=== PATIENT | male | born 1970 | race Caucasian/White ===

== ENCOUNTER 2023-09-15 15:45 | Inpatient (IN) | payer OTHER, SELFPAY ==
[2023-09-15] VITALS (11 sets, daily range): BP systolic 108–140; BP diastolic 73–88; BMI 28.0
--- NOTE | 2023-09-15 11:32 | ED.GENMED ---
History of Present Illness
General
Chief Complaint: Breathing Problem
Source: patient
Exam Limitations: none
Time Seen by Provider: 09/15/23 11:25
History of Present Illness
History of Present Illness:
53 year old otherwise healthy male presents with worsening PALACIOS. He feels minimal exertion reproduces shortness of breath. No chest pain or cough. Denies dark or tarry stools but notes a hemorrhoid that has been bleeding when he moves his bowels
only. NO recent travel or surgery. he does not take any medications daily. No fever.
Past History
Past History
ED Past Medical History: None
ED Past Surgical History: None
Social History
Tobacco: Non-smoker
Alcohol: None
Drug: None
Employment: Employed
Phy Exam
Physical Exam
Physical Exam:
General: Pale appearing male, no respiratory distress
HEENT: NC/AT pallor noted
Heart: Tachycardic but regular
Lungs CTA bilaterally
ABd: soft, nontender
Ext: no cyanosis
Skin: Pale, no rash
Scores
Heart Failure Risk
Heart Failure Risk Score: Not Applicable
Course
Orders/Labs/Results
Orders:
Orders
09/15/23 11:42
Type+Screen Urgent
Complete Blood Count/With Diff Urgent
Comprehensive Metabolic Panel Urgent
09/15/23 12:31
Blood Bank Products [* Blood Bank Products] Urgent
Blood Bank Products: *Packed RBC Leuko(PRBC's)
Quantity: 2
Transfuse Today: Yes
Reason: Anemia
Abnormal Lab Results
09/15/23
11:42
RBC 2.85 L 10^6/uL
(4.70-6.10)
Hgb 4.4 L* g/dL
(13.0-18.0)
Hct 17.1 L* %
(39.0-52.0)
MCV 60.0 L fL
(80.0-94.0)
MCH 15.4 L pg
(27.0-31.0)
MCHC 25.7 L g/dL
(33.0-37.0)
RDW 20.4 H %
(11.5-14.5)
Absolute Lymphs (auto) 0.5 L 10^3/uL
(1.2-3.4)
Neutrophils % 81.1 H %
(42.2-75.2)
Lymphocytes % 10.4 L %
(20.5-51.1)
Chloride 108 H mmol/L
(98-107)
Carbon Dioxide 20 L mmol/L
(22-30)
Glucose 121 H mg/dl
(70-99)
Total Bilirubin 2.0 H mg/dl
(0.2-1.3)
09/15/23 11:42
09/15/23 11:42
Vital Signs
Initial and Last Documented VS:
Initial Vital Signs
Temp Pulse Resp BP Pulse Ox
98.3 F 116 16 132/88 99
09/15/23 10:50 09/15/23 10:50 09/15/23 10:50 09/15/23 10:50 09/15/23 10:50
Last Documented Vital Signs
Temp Pulse Resp BP Pulse Ox
98.3 F 110 20 136/74 99
09/15/23 10:50 09/15/23 11:49 09/15/23 11:49 09/15/23 11:49 09/15/23 11:49
MDM/Problems Addressed
Differential Diagnosis Includes:
PALACIOS. Resting tachycardia. Looks pale. Consider anemia. Denies dark stools. Takes no medications
No risk for PE. lUngs are clear, do not suspect pneumonia
Chronic conditions affecting care:
None
Acute Exacerbation and/or Progression of Chronic Illness:
n/a
*Critical Care Note
Total Time (30-74mins, 75-104mins- exclusive of procedures): Not Applicable
Update Note
Update Note:
Hgb 4.4. Patient has symptomatic anemia. Rectal exam shows external hemorrhoid, not actively bleeding. Stool is brown and heme negative.
Patient does not use NSAIDs regularly, he does admit to drinking 10 beers every weekend.
Blood consent signed. 2 units of PRBC ordered. Will admit for symptomatic anemia
ED Attending Note
-
Portions of this chart may have been created with voice recognition software.� Occasional wrong word or��sound alike� substitutions may have occurred due to the inherent limitations of voice recognition software.
Discharge Plan
Departure
Patient Disposition: Admit
Date of Disposition: 09/15/23
Time of Disposition: 12:36
Admit to: Telemetry
Presentation/result/management discussed w/ accepting MD/DO: Hospitalist
Discharge Problem:
Symptomatic anemia
Prescriptions:
No Action
No Current Medications
0
Interventions
Interventions:
*Risk Screen - Suicide Last Done: 09/15/23 10:50
*General Assessment Last Done: 09/15/23 10:50
*Neglect/Abuse Screening Last Done: 09/15/23 10:50
ED- Fall Risk Assessment Last Done: 09/15/23 11:17
ED- Cardiac Assessment Last Done: 09/15/23 11:17
ED- Pulmonary Assessment Last Done: 09/15/23 11:17
Discharge Date and Time
Print Language: PASHTO
[2023-09-15 12:08] LABS: ALT (SGPT) 15 U/L (0-50); AST (SGOT) 19 U/L (17-59); Albumin 4.7 g/dl (3.5-5.0); Alkaline Phosphatase 50 U/L (38-126); Blood Urea Nitrogen 11 mg/dl (9-20); Calcium 9.4 mg/dl (8.4-10.2); Carbon Dioxide 20 mmol/L (22-30); Chloride 108 mmol/L (98-107); Glucose 121 mg/dl (70-99); Potassium 4.3 mmol/L (3.5-5.1); Sodium 138 mmol/L (135-145); Total Protein 6.8 g/dl (6.3-8.2); eGFR > 60.00
[2023-09-15 12:14] LABS: Hematocrit 17.1 % (39.0-52.0); Hemoglobin 4.4 g/dL (13.0-18.0); Mean Corp Hgb Conc. 25.7 g/dL (33.0-37.0); Mean Corpuscular Hgb 15.4 pg (27.0-31.0); Mean Platelet Volume 9.1 fL (7.4-10.4); Platelet Count 387 10^3/uL (130-400); Red Blood Cell Count 2.85 10^6/uL (4.70-6.10); Red Cell Dist. Width 20.4 % (11.5-14.5); White Blood Cell Count 4.8 10^3/uL (4.8-10.8)
[2023-09-15 12:16] LABS: % Basophils 0.4 % (0-2); % Eosinophils 1.7 % (0-6); % Immature Granulocytes 0.4 % (0-0.5); % Lymphocytes 10.4 % (20.5-51.1); % Neutrophils 81.1 % (42.2-75.2); Absolute Eosinophils 0.1 10^3/uL (0-0.7); Absolute Lymphocytes 0.5 10^3/uL (1.2-3.4); Absolute Monocytes 0.3 10^3/uL (0.1-0.6); Absolute Neutrophils 3.9 10^3/uL (1.4-6.5); Nucleated Red Blood Cells % 0 % (-)
[2023-09-15 15:01] LABS: Hypochromasia 2+; Normal RBC Morphology No
--- NOTE | 2023-09-15 16:05 | CON.GI ---
Addendum entered and electronically signed by Parvez Francisco MD 09/15/23 17:29:
I saw and evaluated the patient. I reviewed the resident�s note and agree with findings and plan as documented in the resident�s note.
Pt is a 53yo male presents with SOB over last 2 weeks. Hgb 4.4, MCV 60. He has had hemorrhoidal bleeding over the last 6 months several times per week. He sees BRB in bowl and on TP that is a fair amount. Occasionally he feels prolapse of the
hemorrhoid. Denies abd pain, UGI symptoms, change in BMs. He is regular and has 2 BMs per day. No prior EGD/colonoscopy. No prior CBC as pt does not see a primary care physician. Denies wt loss. No FH of GI cancers. Ferritin 2.7.
REC:
Transfuse PRBC to a safer range, then plan prep tomorrow for EGD/colonoscopy on Monday to SALINAS
Could be chronic bleeding from hemorrhoids but seems excessive drop in Hgb
Rule out CRC, evaluate for celiac, H pylori
Original Note:
Consultation
-
Date/Time Consultation Performed: 09/15/23
Reason for Consultation: symptomatic anemia, hemorrhoids
Medical History
Chief Complaint / HPI
Chief Complaint: shortness of breath on exertion
History of Present Illness:
53 year old male with history of hemorrhoids, cholelithiasis who presented to urgent care for shortness of breath on exertion, and was sent to the ED for evaluation. For the past 2 weeks, he has felt short of breath and had trouble taking deep
breaths after walking about 0.1 miles outside. 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 He has no shortness of breath at rest or while walking in his apartment. He had a similar episode in 06/2022, which
resolved after urgent care prescribed albuterol inhaler and PO steroids. In the ED, his hgb was 4.4 and GI was consulted for bleeding hemorrhoids. He does not follow with primary care, and has not had baseline blood work in his adulthood.
For the past 6 months, he reports intermittent painless rectal bleeding after bowel movements. Based on his 'googling,' he believes this to be a hemorrhoid that occasionally prolapses and is easily reduced. A few days per week, he notices a fairly
significant amount of blood after bowel movements; the blood drips into the toilet bowl and soaks the toilet paper when he wipes. It most recently bled this morning. He has tried vaseline, hemorrhoid cream, and increasing his fiber, which he says
sometimes help. He has daily bowel movements about twice per day, which are brown, formed, and easy to pass without straining. He denies black or red stools, diarrhea, constipation. He denies fevers, chills, chest pain, palpitations, nausea,
vomiting, pain/difficulty swallowing, abdominal pain/cramping. He reports occasional acid reflux, a few times per week. He takes a multivitamin daily, and no other daily medication. He uses ibuprofen or aspirin as needed, about once per month. He
has about 10 beers per week.
Past Medical History
Past Medical History: Asthma (childhood, resolved), GERD and Other (cholelithiasis)
Past Surgical History: Orthopedic (L thumb >30 years ago)
Social History
Tobacco: Non-Smoker
Alcohol: Other (~10 beers per week)
Drug: None
Employment: Employed ([employer])
Family History
Family History: Reviewed & Not Pertinent
Allergies / Home Medications
Allergy/AdvReac Type Severity Reaction Status Date / Time
No Known Allergies Allergy Verified 09/15/23 10:49
�Medication �Instructions �Recorded
therapeutic multivitamin 1 tab PO DAILY 09/15/23
Review of Systems
-
All other systems: A 12 pt ROS was Negative except as stated above in HPI
Vital Signs
Temp Pulse Resp BP Pulse Ox
97.7 F 97 20 125/84 99
09/15/23 15:50 09/15/23 15:50 09/15/23 15:50 09/15/23 15:50 09/15/23 15:50
Physical Exam
Exam
General: Sitting comfortably in bed, no acute distress.
HEENT: Normocephalic, atraumatic. Anicteric. Conjunctival pallor.
Heart: Regular rate and rhythm.
Lungs: Nonlabored breathing. Clear and equal to auscultation bilaterally.
GI: Normal bowel sounds present. Abdomen obese, soft, nontender, nondistended. No rebound, rigidity, guarding.
Results
WBC 4.8 10^3/uL (4.8-10.8) 09/15/23 11:42
Hgb 4.4 g/dL (13.0-18.0) L* 09/15/23 11:42
Hct 17.1 % (39.0-52.0) L* 09/15/23 11:42
MCV 60.0 fL (80.0-94.0) L 09/15/23 11:42
Plt Count 387 10^3/uL (130-400) 09/15/23 11:42
Absolute Neuts (auto) 3.9 10^3/uL (1.4-6.5) 09/15/23 11:42
Sodium 138 mmol/L (135-145) 09/15/23 11:42
Potassium 4.3 mmol/L (3.5-5.1) 09/15/23 11:42
Chloride 108 mmol/L (98-107) H 09/15/23 11:42
Carbon Dioxide 20 mmol/L (22-30) L 09/15/23 11:42
BUN 11 mg/dl (9-20) 09/15/23 11:42
Creatinine 0.9 mg/dL (0.7-1.3) 09/15/23 11:42
Calcium 9.4 mg/dl (8.4-10.2) 09/15/23 11:42
Total Bilirubin 2.0 mg/dl (0.2-1.3) H 09/15/23 11:42
AST 19 U/L (17-59) 09/15/23 11:42
ALT 15 U/L (0-50) 09/15/23 11:42
Alkaline Phosphatase 50 U/L (38-126) 09/15/23 11:42
Diagnostic Image Results:
Chest xray 06/2022:
IMPRESSION:
1. Mild cardiomegaly without radiographic evidence for acute pulmonary edema.
2. Mild elevation of the anterior right hemidiaphragm.
3. Cholelithiasis.
Prior GI Procedures:
EGD: none
Colonoscopy: none
Assessment / Plan
-
53 year old male with past medical history of hemorrhoids, who presents to ED for shortness of breath and found to have symptomatic anemia with hgb 4.4. He has multiple episodes per week of rectal bleeding after bowel movements, and GI consulted for
further evaluation.
Impression:
Painless rectal bleeding
- May be secondary to hemorrhoids; differential also includes GI bleeding from ulcers, polyps, or mass.
Hemorrhoids
Symptomatic anemia, uncertain etiology
- Hgb 4.4 in ED --> s/p 1u pRBC transfusion
Recommendations:
- Colonoscopy, EGD to evaluate for a source of GI bleeding- plan for Saturday 09/16. Will need colonoscopy prep.
- Plan to take biopsies for H pylori and celiac, which can contribute to anemia.
- Iron studies, vitamin b12, folate, tsh labs pending.
- Can consider trial of anusol suppositories for hemorrhoids.
- Continue clear liquid diet.
-
-
Thank you for consultation and allowing me to participate in the patient's care. Please call the conveyor feeder GI physician during the after hours with any questions or concerns.
[2023-09-15 16:25] LABS: Direct Bilirubin 0.3 mg/dl (0.0-0.4)
[2023-09-15 16:34] LABS: Total Iron Binding Capacity 556 ug/dl (261-462)
[2023-09-15 17:12] LABS: Ferritin 2.7 ng/ml (17.9-464.0)
--- NOTE | 2023-09-15 17:22 | PTCARENOTE ---
Yolanda singletary texted Dr. Moore and Dr. Denton that patient drinks 10 beers every Monday or Monday. Patient meets criteria for MSAS.
--- NOTE | 2023-09-15 17:39 | HPS.HSE ---
Addendum entered and electronically signed by Jemima Prater MD 09/15/23 18:24:
I personally performed a history and physical exam of the patient and discussed management with the resident. I reviewed the resident's note and agree with the documented findings and plan of care HPI/CC.
GENERAL: well developed, well nourished, male in no apparent distress
HEENT: NC/AT--conjunctiva pale
HEART: regular rate and rhythm, +S1, +S2, tachycardic
LUNGS : clear to auscultation bilaterally
ABDOM: soft, nontender, nondistended, + bowel sounds
EXT: no cyanosis, clubbing, or edema
NEUROLOGIC: grossly intact
SOB due to symptomatic anemia--likely iron deficiency from chronic blood loss vs poor iron intake-- Hgb:4.4, MCV=60--Transfusion of 2 units of pRBC--Iron studies consistent with SALINAS-- TSH WNL and --Continue to monitor Hgb--Watch for transfusion
reactions--apprec GI consult--will need Consider colonoscopy/endoscopy--pt with hx of hemorrhoids and daily bleeding?--unclear cause
Elevated Bili: Total bili:2, cholelithiasis seen on CXR--Might consider abd ultrasound vs Gilbert's disease
ETOH use--weekends mostly--no signs of withdrawal--will add MSAS
low normal vitamin R44--iuza start supplementation
DVT prophylaxis: SCD
CODE STATUS: Full
Original Note:
Family Physician
-
Family Physician: * NONE
Chief Complaint
-
SOB
History of Present Illness
Patient is a 53 year old otherwise healthy male who presented to the ED for evaluation of SOB. Patient mentions the SOB started a year and a half ago, which he was diagnosed with bronchitis and received nebs; the nebs did initially help him with the
SOB but his dyspnea significantly worsened about 2 weeks ago. Today, he was referred to ED by urgent care due to notable SOB and extreme paleness. He mentions the SOB gets worse with exertion. He does not report any chest pain or dizziness but has
noticed recent palpitations. Does not mention any recent weight loss, hematuria, heartburn, and does not give a history of recent trauma/surgery. He only takes NSAIDs occasionally (twice a month) for headaches.
Patient gives a 6-month history of rectal hemorrhoids that bleed almost daily (about 15cc daily) but has pursued any treatment for his condition. He has never had a colonoscopy/endoscopy.
Nationality is [place].
Medical History
Past Medical History
Past Medical History: Reports Asthma (Patient gives a remote history of asthma in his childhood but has been symptom-free since )
Additional Past Medical History:
Rectal Hemorrhoids
Past Surgical History: Reports None
Social History
Tobacco: Non-smoker
Alcohol: Occasional (Drinks 10 beers in the weekend)
Drug: None
Employment: Employed
Family History
Family History: Cancer (Dad had prostate cancer)
Allergies / Home Medications
Allergies reflects when Allergies were last updated in [facility] [employer].
Home Medications with original date entered in [facility] [employer]
Allergy/Medication List:
Allergies
Allergy/AdvReac Type Severity Reaction Status Date / Time
No Known Allergies Allergy Verified 09/15/23 10:49
Home Medications
therapeutic multivitamin 1 tab PO DAILY 09/15/23
Review of Systems
-
History Source: Patient
A 12 point ROS was completed and negative except as noted: Yes
Respiratory: Reports Trouble Breathing
Cardiac: Reports Palpitations
Abdomen/GI: Reports Other (Rectal Hemorrhoids)
: Reports No Symptoms
Musculoskeletal: Reports No Symptoms
Skin: Reports Other (pale)
Neurological: Reports No Symptoms
Endocrine: Reports No Symptoms
Hematologic/Lymphatic: Reports No Symptoms
Psych: Reports No Symptoms
Physical Exam
Vital Signs
Vital Signs
Temp Pulse Resp BP Pulse Ox
98.3 F 108 14 140/78 100
09/15/23 16:44 09/15/23 16:44 09/15/23 16:44 09/15/23 16:44 09/15/23 16:44
Physical Exam
General: Well Developed, Well Nourished and Comfortable
HEENT: NormoCephalic and Other (pale conjunctivae)
Respiratory: Clear
Cardiac: S1/S2, Regular Rhythm and Tachycardia
GI: Soft, Non Tender, Non Distended and Normal Bowel Sounds
Genito-urinary: No costovertebral tender
Musculoskeletal: No Clubbing, No Cyanosis and No Edema
Neuro: Awake, Alert, Oriented and AO x 3
Psych: Calm
Laboratory Results
-
09/15/23 11:42
09/15/23 11:42
Laboratory Results
Total Bilirubin 2.0 mg/dl (0.2-1.3) H 09/15/23 11:42
AST 19 U/L (17-59) 09/15/23 11:42
ALT 15 U/L (0-50) 09/15/23 11:42
Alkaline Phosphatase 50 U/L (38-126) 09/15/23 11:42
Data Reviewed
-
Critical Care Time (in minutes): 50
Impression/Plan
-
IMPRESSION/ PLAN:
#1 SOB due to symptomatic anemia: Hgb:4.4, MCV=60--Transfusion of 2 units of pRBC--Iron studies--Check TSH and reflux T4--Continue to monitor Hgb--Watch for transfusion reactions-- GI consult for possible GI source of anemia--Consider
colonoscopy/endoscopy
#2 Elevated Bili: Total bili:2, cholelithiasis seen on CXR--Might consider abd ultrasound
DVT prophylaxis: SCD
CODE STATUS: Full
[2023-09-15 17:42] LABS: Iron 21 ug/dl (49-181); Percent Saturation 3 % (20-50)
[2023-09-15 17:43] LABS: Folate > 20.0 ng/ml (2.76-20); Vitamin B12 272 pg/ml (239-931)
[2023-09-15 17:56] LABS: TSH Reflex To Free T4 1.22 uIU/ml (0.47-4.68)
[2023-09-15 18:27] LABS: APTT 29.3 Sec (23.4-35.0); INR 1.16; PT 14.6 Sec (11.4-14.6)
[2023-09-15 18:29] LABS: GGTP 30 U/L (15-73); Magnesium 2.1 mg/dl (1.6-2.3); Phosphorus 4.7 mg/dl (2.5-4.5)
[2023-09-15 18:31] LABS: Alcohol None Detected
[2023-09-15 18:36] LABS: B-Hydroxybutyrate 0.25 mmol/L (0.02-0.27)
[2023-09-15] MEDS: THIAMINE INJECTION 200 MG IV (20:37)
[2023-09-16] VITALS (9 sets, daily range): BP systolic 106–139; BP diastolic 65–88
[2023-09-16 00:42] LABS: Urine Albumin Negative (Neg - Trace); Urine Bilirubin Negative (Negative); Urine Character Clear (Clear); Urine Color Yellow; Urine Glucose Negative (Negative); Urine Ketone Negative (Negative); Urine Leukocyte Negative (Negative); Urine Nitrite Negative (Negative); Urine Occult Blood Negative (Negative); Urine Specific Gravity 1.015 (<1.030); Urine Urobilinogen Negative (Neg - 1+)
[2023-09-16 00:51] LABS: Amphetamines Negative (Negative); Barbiturates Negative (Negative); Benzodiazepines Negative (Negative); Buprenorphine Negative (Negative); Cocaine Negative (Negative); Marijuana Negative (Negative); Methadone Negative (Negative); Methamphetamines Negative (Negative); Opiates Negative (Negative); Phencyclidine Negative (Negative); Tricyclic Antidepressants Negative (Negative)
[2023-09-16] MEDS: THIAMINE INJECTION 200 MG IV ×2 (07:58→22:00)
[2023-09-16] MEDS: FOLVITE 1 MG PO (07:59)
[2023-09-16] MEDS: THERAGRAN 1 TABLET PO (07:59)
[2023-09-16 09:39] LABS: Hematocrit 21.9 % (39.0-52.0); Hemoglobin 6.3 g/dL (13.0-18.0); Mean Corp Hgb Conc. 28.8 g/dL (33.0-37.0); Mean Corpuscular Volume 66.2 fL (80.0-94.0); Mean Platelet Volume 9.8 fL (7.4-10.4); Platelet Count 366 10^3/uL (130-400); Red Blood Cell Count 3.31 10^6/uL (4.70-6.10); Red Cell Dist. Width 25.6 % (11.5-14.5); White Blood Cell Count 6.1 10^3/uL (4.8-10.8)
--- NOTE | 2023-09-16 09:47 | PTCARENOTE ---
dr hudson and Dr Jimenez aware of hemoglobin of 6.3 this morning. 2 Units of PRBC ordered. pt updated.
[2023-09-16 09:58] LABS: Blood Urea Nitrogen 13 mg/dl (9-20); Calcium 9.1 mg/dl (8.4-10.2); Carbon Dioxide 22 mmol/L (22-30); Chloride 108 mmol/L (98-107); Estimated Creatinine Clearance 70 ml/min; Glucose 102 mg/dl (70-99); Potassium 4.8 mmol/L (3.5-5.1); Sodium 141 mmol/L (135-145); eGFR > 60.00
--- NOTE | 2023-09-16 10:03 | W.PN.HOSP.TC ---
Addendum entered and electronically signed by Jemima Prater MD 09/16/23 13:59:
I saw and evaluated the patient independently. I reviewed the resident�s note and agree with findings and plan as documented by Dr. Jimenez.
GENERAL: well developed, well nourished, male in no apparent distress
HEENT: NC/AT--conjunctiva pale
HEART: regular rate and rhythm, +S1, +S2, tachycardic
LUNGS : clear to auscultation bilaterally
ABDOM: soft, nontender, nondistended, + bowel sounds
EXT: no cyanosis, clubbing, or edema
NEUROLOGIC: grossly intact
SOB due to symptomatic anemia--likely iron deficiency from chronic blood loss vs poor iron intake-- Hgb:4.4, MCV=60--Transfusion of 2 units of pRBC got HGB to 6.3, will transfuse 2 more units--Iron studies consistent with SALINAS-- TSH WNL and
--Continue to monitor Hgb---apprec GI consult-- Consider colonoscopy/endoscopy Monday--pt with hx of hemorrhoids and daily bleeding?--unclear if that is cause--start IV iron repletion
Elevated Bili: Total bili:2, cholelithiasis seen on CXR--Might consider abd ultrasound vs Gilbert's disease
ETOH use--weekends mostly--no signs of withdrawal--will add MSAS
low normal vitamin K23--boah start supplementation
DVT prophylaxis: SCD
CODE STATUS: Full
Original Note:
Today's Communication/Plan
-
Bowel prep, PRBC transfusion, follow CBC
Assessment / Plan
Assessment / Plan
Shortness of breath due to symptomatic anemia
Likely iron deficiency from chronic blood loss versus poor iron intake. On admission; Hgb 4.4, MCV 60. TSH normal. B12 low normal, folate elevated. iron studies consistent with iron deficiency anemia. Hx of bleeding hemmorhoids
Status post 2 units PRBCs, hemoglobin improved to 6.3. Will transfuse 2 more units PRBCs today
Appreciate GI input. To have EGD and colonoscopy tomorrow. Clear liquids today, bowel prep
-Follow CBC
-Check
Elevated bilirubin:
Total bilirubin 2.0. Transaminases normal.
-Will reassess in a.m. Will consider upper abdominal ultrasound if persists. Possible Gilbert's
Alcohol use:
Weekends mostly. No signs of withdrawal.
-MSAS protocol
Low normal B12: 272. Supplementing
DVT prophylaxis: SCDs
CODE STATUS: Full code
Anticipated Discharge: > 48 hours
Subjective/Interval History
-
Date of Service: September 16, 2023
Objective Data
-
Labs:
Laboratory Results
09/16/23
06:28
WBC 6.1
Hgb 6.3 L* D
Hct 21.9 L
Plt Count 366
Sodium 141
Potassium 4.8
Chloride 108 H
Carbon Dioxide 22
BUN 13
Creatinine 1.0
Glucose 102 H
Calcium 9.1
Vital Signs:
Vital Signs
Temp Pulse Resp BP Pulse Ox
98.3 F 90 18 118/78 99
09/16/23 07:00 09/16/23 07:00 09/16/23 07:00 09/16/23 07:00 09/16/23 07:00
I&O
09/15/23 09/16/23 09/17/23
06:59 06:59 06:59
Intake Total 500 / 500
Balance 500 / 500
Review of Systems
-
History Source: Patient
Respiratory: Denies Trouble Breathing
Cardiac: Denies Chest Pain, Palpitations or Syncope
Abdomen/GI: Denies Abdominal Pain
Genitourinary: Denies Dysuria or Difficulty Voiding
Physical Exam
-
General: Well Developed, No Apparent Distress and Comfortable
HEENT: Other (pale conjunctivae)
Respiratory: Clear to Auscultation and Non Labored Respirations; Negative Wheezes, Rales, Rhonchi or Crackles
Cardiac: Regular Rhythm and S1/S2; Negative Murmur or Rub
GI: Soft, Nontender, Nondistended and Normal Bowel Sounds
Musculoskeletal: No Clubbing, No Cyanosis and No Edema
Skin: Warm, Dry and Other (pale appearing)
Neuro: Awake and Alert
Psych: Calm
--- NOTE | 2023-09-16 10:29 | W.PN.GI.CBS2 ---
Addendum entered and electronically signed by Parvez Francisco MD 09/16/23 10:35:
Getting another 2 units PRBC for Hgb 6.3 this am (after 2 units PRBC)
Original Note:
Today's Communication / Plan
-
Plan EGD/colonoscopy tomorrow for evaluation of severe SALINAS
Check celiac panel
Assessment / Plan
-
53 year old male with past medical history of hemorrhoids, who presents to ED for shortness of breath and found to have symptomatic anemia with hgb 4.4. He has multiple episodes per week of rectal bleeding after bowel movements, and GI consulted for
further evaluation.
Impression:
Rectal bleeding
Blood loss anemia Hgb 4.4. SALINAS. Ferritin 2.7
Hemorrhoids
Subjective
Subjective
Date of Service: September 16, 2023
No complaints this am
Objective
Data Reviewed
Laboratory Data:
Laboratory Results
09/16/23 06:28
09/16/23 06:28
Laboratory Results
PT 14.6 Sec (11.4-14.6) 09/15/23 17:58
INR 1.16 09/15/23 17:58
APTT 29.3 Sec (23.4-35.0) 09/15/23 17:58
Phosphorus 4.7 mg/dl (2.5-4.5) H 09/15/23 17:58
Magnesium 2.1 mg/dl (1.6-2.3) 09/15/23 17:58
Total Bilirubin 2.0 mg/dl (0.2-1.3) H 09/15/23 11:42
AST 19 U/L (17-59) 09/15/23 11:42
ALT 15 U/L (0-50) 09/15/23 11:42
Alkaline Phosphatase 50 U/L (38-126) 09/15/23 11:42
Vital Signs and I&O:
Vital Signs
Temp Pulse Resp BP Pulse Ox
98.3 F 90 18 118/78 99
09/16/23 07:00 09/16/23 07:00 09/16/23 07:00 09/16/23 07:00 09/16/23 07:00
I&O
09/15/23 09/16/23 09/17/23
06:59 06:59 06:59
Intake Total 500 / 500
Balance 500 / 500
Physical Exam
Physical Exam
GI: Soft, Non Distended and Non Tender
--- NOTE | 2023-09-16 16:05 | CM ---
contracting manager reviewed patient's chart and met with patient and patient resides at [facility], 5th floor, elevator accessible building patient is independent with adl's and ambulation. contracting manager received a consult for
substance abuse counseling and patient declines the need for treatment options or resources.
Pharmacy Steve
Plan; Home when stable no needs.
[2023-09-16] MEDS: NULYTELY SOLUTION 4 LITERS PO (17:12)
[2023-09-17 07:51] VITALS: BP 123/76
[2023-09-17 08:54] LABS: Hematocrit 30.1 % (39.0-52.0); Hemoglobin 9.2 g/dL (13.0-18.0); Mean Corp Hgb Conc. 30.6 g/dL (33.0-37.0); Mean Corpuscular Hgb 21.1 pg (27.0-31.0); Mean Corpuscular Volume 69.2 fL (80.0-94.0); Mean Platelet Volume 9.5 fL (7.4-10.4); Platelet Count 312 10^3/uL (130-400); Red Blood Cell Count 4.35 10^6/uL (4.70-6.10); Red Cell Dist. Width 25.9 % (11.5-14.5); White Blood Cell Count 7.1 10^3/uL (4.8-10.8)
--- NOTE | 2023-09-17 09:04 | PTCARENOTE ---
Addendum entered by Macey Dalton RN 09/17/23 11:22:
returned at 11am from GI procedures. Regular diet ordered.
Original Note:
pt sent to GI procedures.
[2023-09-17 09:21] LABS: Direct Bilirubin 0.2 mg/dl (0.0-0.4); Total Bilirubin 4.8 mg/dl (0.2-1.3)
--- NOTE | 2023-09-17 09:55 | W.PN.UPDATE ---
Update Note
Progress Note Update
EGD/colonoscopy done
EGD:
Edema GEJ-bx'd
Polyp gastric fundus-bx'd
Few superficial DU in bulb-bx'd
Bx taken HP and celiac
COLON:
Large partially thrombosed external hemorrhoids
Colon normal
REC:
Colorectal surgery eval for large partially thrombosed hemorrhoids
Await path
[2023-09-17 10:00] VITALS: BP 99/65; BP_SYST 17
[2023-09-17 10:15] VITALS: BP 109/76; BP_SYST 17
[2023-09-17 10:25] VITALS: BP 119/82; BP_SYST 25
--- NOTE | 2023-09-17 10:34 | CON.CRS ---
Consultation
-
Reason for Consultation: hemmorrhoids
Medical History
-
Chief Complaint: rectal bleeding
History of Present Illness:
Mr. Valladares is a 53 yo male with a h/o asthma and GERD who presents with worsening SOB over the past 2 weeks and complaints of multiple episodes of bright red blood in stool and with wiping over the past 6 months although only recently noticed
discomfort with this. He notes that he felt something drop down, and was pushing it back up in order to pass stools. He denies constipation and on average has about 2 bm's per day. He denied nausea or vomiting. He was noted to be profoundly anemic
on presentation with a hemoglobin of 4.4 now up to 9.2 after 4 units of packed red blood cells. He underwent endoscopy and colonoscopy today with a few non-bleeding superficial duodenal ulcers on EGD and thrombosed external hemorrhoids on
colonoscopy.
Past Medical History
Past Medical History: GERD and Other (Asthma, hemorrhoids)
Past Surgical History: Orthopedic (left thumb)
Social History
Alcohol: Binge Drinker (on weekends: approx 10 drinks)
Employment: Employed
Family History
Family History: Reviewed & Not Pertinent
Allergies / Home Medications
Allergy/AdvReac Type Severity Reaction Status Date / Time
No Known Allergies Allergy Verified 09/15/23 10:49
�Medication �Instructions �Recorded �Confirmed �Type
therapeutic multivitamin 1 tab PO DAILY 09/15/23 09/15/23 History
Review of Systems
-
History Source: Patient
All other systems: Negative unless noted
A 10 point review of systems was completed, and was negative except as per HPI.
Physical Exam
Vital Signs
Temp 97.6 F 09/17/23 10:25
Pulse 80 09/17/23 10:25
Resp Rate 25 09/17/23 10:25
Blood pressure 119/82 09/17/23 10:25
SaO2 97 09/17/23 10:25
09/16/23 09/17/23 09/18/23
06:59 06:59 06:59
Actual Weight 71.622 kg
Body Mass Index (BMI) 28.0
Lab Results / Allergies
09/17/23 07:40
09/16/23 06:28
WBC 7.1 10^3/uL (4.8-10.8) 09/17/23 07:40
Hgb 9.2 g/dL (13.0-18.0) L D 09/17/23 07:40
Hct 30.1 % (39.0-52.0) L 09/17/23 07:40
Plt Count 312 10^3/uL (130-400) 09/17/23 07:40
Abs Immat Gran (auto) 0.0 10^3/uL (0-0.05) 09/15/23 11:42
Neutrophils % 81.1 % (42.2-75.2) H 09/15/23 11:42
Allergy/AdvReac Type Severity Reaction Status Date / Time
No Known Allergies Allergy Verified 09/15/23 10:49
Physical Exam
General: Well Developed
HEENT: Normocephalic
Respiratory: Non Labored Respirations
GI: Soft, Non Tender and Non Distended
Rectal: Hemorrhoids (large external hemorrhoids, no bleedy noted)
Skin: Warm
Neuro: Awake, Alert and AO x 3
Psych: Calm
Data Reviewed
-
Medical Tests (Nuc Med, Echo etc): Report Reviewed by me, Discussed with Physician and Discussed with Patient
Labs: Labs Reviewed by me and Discussed with Patient
Old Records: Reviewed
Assessment / Plan
-
53 yo male presenting with bloody stools intermittently for the past 6 months and SOB over the past few weeks with EGD showing a few non-bleeding superficial duodenal ulcers and colonoscopy demonstrating thrombosed hemorrhoids today. Acute anemia on
presentation with hgb of 4.4, now up to 9.2 s/p 4 unit of blood. AFVSS. On exam, hemorrhoids are present without active bleeding.
--H/H stable
--Keep on bowel regimen to keep stools soft
--Stable for d/c from CRS standpoint. Will arrange outpatient follow up.
--Discussed surgical options and patient is interested in proceeding with planning PPH
[2023-09-17] MEDS: FOLVITE 1 MG PO (10:56)
[2023-09-17] MEDS: THIAMINE INJECTION 200 MG IV (10:56)
[2023-09-17] MEDS: THERAGRAN 1 TABLET PO (10:56)
[2023-09-17] MEDS: FERRLECIT 110 MG IV (14:03)
--- NOTE | 2023-09-17 15:18 | CM ---
Home no needs.
Plan; Home no needs.
[2023-09-17 15:34] VITALS: BP 113/74
--- NOTE | 2023-09-17 15:59 | W.PN.HOSP.TC ---
Addendum entered and electronically signed by Jemima Prater MD 09/17/23 16:21:
I saw and evaluated the patient independently. I reviewed the resident�s note and agree with findings and plan as documented by Dr. Jimenez.
GENERAL: well developed, well nourished, male in no apparent distress
HEENT: NC/AT--conjunctiva pale
HEART: regular rate and rhythm, +S1, +S2, tachycardic
LUNGS : clear to auscultation bilaterally
ABDOM: soft, nontender, nondistended, + bowel sounds
EXT: no cyanosis, clubbing, or edema
NEUROLOGIC: grossly intact
SOB due to symptomatic anemia--likely iron deficiency from chronic blood loss vs poor iron intake-- Hgb:4.4, MCV=60--Transfusion of 2 units of pRBC got HGB to 6.3, will transfuse 2 more units--Iron studies consistent with SALINAS, repeat HGB is 9.2--
TSH WNL and ---apprec GI consult-- colonoscopy/endoscopy reveal thrombosed hemorrhoids--cont iron supps at d/c
Elevated Bili: Total bili:2, cholelithiasis seen on CXR--consider Gilbert's disease
ETOH use--weekends mostly--no signs of withdrawal--will add MSAS
low normal vitamin Y10--uzsj supplementation
DVT prophylaxis: SCD
CODE STATUS: Full
Original Note:
Today's Communication/Plan
-
Discharge planning
Assessment / Plan
Assessment / Plan
#Shortness of breath due to symptomatic anemia
Likely iron deficiency from chronic blood loss versus poor iron intake. On admission; Hgb 4.4, MCV 60. TSH normal. B12 low normal, folate elevated. iron studies consistent with iron deficiency anemia. Hx of bleeding hemorrhoids.
Status post 2 units PRBCs, hemoglobin improved to 6.3. And 2 more PRBCs given, raising Hgb to 9.2
EGD showing a few non-bleeding superficial duodenal ulcers and colonoscopy demonstrating thrombosed hemorrhoids today.
-Appreciate GI input.
-Follow CBC
-Stable for discharge. To follow up with colorectal surgery outpatient. Pt is interested in PPH.
#Elevated bilirubin:
Source unclear, consider Francisco's
Total bilirubin 2.0 --> 4.0, Direct bilirubin 0.2
-Follow up with PCP outpatient
#Alcohol use:
Weekends mostly. No signs of withdrawal.
-MSAS protocol
Low normal B12: 272. Supplementing
DVT prophylaxis: SCDs
CODE STATUS: Full code
Anticipated Discharge: Today
Subjective/Interval History
-
Date of Service: September 17, 2023
Had EGD and Colonoscopy today
Objective Data
-
Labs:
Laboratory Results
09/17/23
07:40
WBC 7.1
Hgb 9.2 L D
Hct 30.1 L
Plt Count 312
Total Bilirubin 4.8 H D
Vital Signs:
Vital Signs
Temp Pulse Resp BP Pulse Ox
98.0 F 89 16 113/74 100
09/17/23 15:34 09/17/23 15:34 09/17/23 15:34 09/17/23 15:34 09/17/23 15:34
I&O
09/16/23 09/17/23 09/18/23
06:59 06:59 06:59
Intake Total 500 / 500 1460 / 1460
Balance 500 / 500 1460 / 1460
Review of Systems
-
History Source: Patient
Respiratory: Denies Trouble Breathing
Cardiac: Denies Chest Pain or Palpitations
Abdomen/GI: Reports Other (hemorrhoid bleed)
Genitourinary: Reports Difficulty Voiding
Neuro: Denies Dizzy or Headache
Physical Exam
-
General: Comfortable
HEENT: Anicteric and [place] Conjunctivae
Respiratory: Clear to Auscultation
Cardiac: Regular Rhythm and S1/S2; Negative Murmur or Rub
GI: Soft, Nontender, Nondistended and Normal Bowel Sounds
Musculoskeletal: No Edema
Skin: Warm and Dry; Negative Jaundice
Neuro: Awake, Alert and Oriented
Psych: Calm
[2023-09-17 19:01] LABS: Transferrin 414 mg/dL (200-360)
--- NOTE | 2023-09-17 19:38 | W.DCSUMMARY ---
Addendum entered and electronically signed by Jemima Prater MD 09/17/23 20:06:
Read, reviewed, and agree. See same day progress note for additional details. Time spent coordinating care, DC planning, review of DC plan of care with resident, transition of care, review of records in EMR, med rec, consults, notes, d/w
consultants, nursing, family, and CM = 35 minutes.
Original Note:
Discharge Summary
Discharge Data
Date of Admission: 09/15/23
Date of Discharge: 09/17/23
-
Pending Results: Yes
Additional Pending Results:
Celiac testing panel
Endoscopy pathology results
Hospital Course
Discharge Physician: Tameka Jimenez MD; Jemima Prater MD.
Primary discharge diagnosis: Symptomatic anemia, iron deficiency anemia,
Chronic discharge diagnosis:
Hospital Course: 53-year-old male with history of hemorrhoids, who presented to the ED with worsening shortness of breath, episodes beginning about 1.5 years ago and significant worsening of dyspnea within the 2 weeks prior to presentation, and a
6-month history of near-daily bleeding of rectal hemorrhoids. Upon presentation to the ED, he was tachycardic 116, with rest of vital stable. Hemoglobin was found to be 4.4, with no active bleeding upon rectal exam, and heme-negative stools. He
appeared pale on physical exam. Iron studies were indicative of iron deficiency anemia: Iron 21, TIBC 556, percentage saturation 3, transferrin 414, ferritin 2.7
Total bilirubin was 2.0.
2 units of packed red blood cells were administered. With improvement in hemoglobin to 6.3 on day 2. Another 2 units of packed red blood cells were transfused with improvement to 9.2.
Repeat total bilirubin was 4.8, Direct bilirubin 0.2 on day 3.
Gastroenterology was consulted, and patient was bowel prepped, and EGD and colonoscopy procedures were done. Large thrombosed rectal hemorrhoids were seen.
Colorectal surgery was consulted, and patient is to follow-up with colorectal surgery outpatient to discuss treatment. Patient indicated interest in procedure for prolapsed hemorrhoids.
Patient noted resolution of symptoms and was ready to be discharged.
Patient will need follow-up with colorectal surgery in outpatient setting to discuss treatment plan:
He was discharged with docusate to prevent constipation/minimize straining with bowel movements, topical lidocaine for hemorrhoid discomfort. He will need repeat total and direct bilirubin in 1 week. Patient does not have established PCP.
Information for [facility] provided. Encouraged to follow-up with PCP within 1 week/as soon as established
Relevant Data:
EGD 09/16: - Congested mucosa in the esophagus - Biopsied. A single gastric polyp - Biopsied. Non-bleeding duodenal ulcers with no stigmata of bleeding - Biopsied. Biopsies were taken with a cold forceps for Helicobacter pylori testing.
Colonoscopy 09/16: - The entire examined colon is normal. Thrombosed external hemorrhoids found on perianal exam. No specimens collected.
Consults:
Colorectal surgery
Gastroenterology
Discharge Plan
-
Patient Disposition: Home (Routine Discharge)
Discharge Diagnosis/Procedures: Shortness of breath due to symptomatic anemia from iron deficiency anemia from chronic blood loss from thrombosed external hemorrhoids, alcohol use, low normal vitamin B12
Condition: Good
Diet: No restrictions and As tolerated
Activity: As tolerated
Driving Restrictions: As prior to admission
Bathing Restrictions: None
Stand Alone Forms: Return to Work
Referrals:
Heber Carlos MD [Active] - in less than 1 week
Tameka Jimenez MD, Resident [Family Practice Resident Year2] - in less than 1 week
Additional Discharge Medication Instructions: Will need Total Bilirubin and Direct Bilirubin test within one week of discharge
Please follow up with colorectal surgery and with your PCP within one week of discharge
Prescriptions:
New
docusate sodium [Colace] 100 mg capsule
100 mg PO BID Qty: 60 0RF
lidocaine [LMX 4] 4 % Cream
1 applic topical Q4H PRN (Reason: anal application, for hemorrhoid flare) Qty: 15 0RF
Continued
therapeutic multivitamin Tablet
1 tab PO DAILY
Discharge Orders:
Discharge Patient (As Directed); Ordered 09/17/23
Ordered By: Tameka Jimenez
Discharge Date and Time
Discharge Date/Time: 09/17/23 16:04
Print Language: CHINESE
[2023-09-18 01:40] LABS: IgA 211 mg/dl (70-400)
[2023-09-20 07:03] LABS: Endomysial IgA Antibody Titer <1:10 (<1:10)
[2023-09-20 13:37] LABS: tTG IgA Antibody 4.8 EU/ml (0-19); tTG IgG Antibody 6.7 EU/ml (0-19)
== END 2023-09-17 16:04 | disposition home or self-care (01) | DRG 812 ==
LOC: 4 WEST ACU 15:45
PROVIDERS: Physician Assistant; Student in an Organized Health Care Education/Training Program; ADMITTING PHYSICIAN Internal Medicine; CONSULT PHYSICIAN Specialist; CONSULT PHYSICIAN Surgery; EMERGENCY PHYSICIAN Emergency Medicine
PROC: 30233N1 Transfusion of Nonautologous Red Blood Cells into Peripheral Vein, Percutaneous Approach (ICD-10-PCS; 2023-09-15)
PROC: 0DB98ZX Excision of Duodenum, Via Natural or Artificial Opening Endoscopic, Diagnostic (ICD-10-PCS; 2023-09-17)
PROC: 0DB78ZX Excision of Stomach, Pylorus, Via Natural or Artificial Opening Endoscopic, Diagnostic (ICD-10-PCS; 2023-09-17)
PROC: 0DJD8ZZ Inspection of Lower Intestinal Tract, Via Natural or Artificial Opening Endoscopic (ICD-10-PCS; 2023-09-17)
PROC: 0DB58ZX Excision of Esophagus, Via Natural or Artificial Opening Endoscopic, Diagnostic (ICD-10-PCS; 2023-09-17)
PROC: 0DB68ZX Excision of Stomach, Via Natural or Artificial Opening Endoscopic, Diagnostic (ICD-10-PCS; 2023-09-17)
DX: D50.0 Iron deficiency anemia secondary to blood loss (chronic) (principal); K64.5 Perianal venous thrombosis; K26.9 Duodenal ulcer, unspecified as acute or chronic, without hemorrhage or perforation; K22.89 Other specified disease of esophagus; K31.7 Polyp of stomach and duodenum; E53.8 Deficiency of other specified B group vitamins; E80.7 Disorder of bilirubin metabolism, unspecified; K21.9 Gastro-esophageal reflux disease without esophagitis; F10.90 Alcohol use, unspecified, uncomplicated; K80.20 Calculus of gallbladder without cholecystitis without obstruction; Z87.09 Personal history of other diseases of the respiratory system
CPT/HCPCS: 88305; 36430; 80048; 80053; 80306; 81003; 82010; 82077; 82247; 82248; 82607; 82728; 82746; 82784; 82977; 83516; 83540; 83550; 83735; 84100; 84443; 84466; 85025; 85027; 85610; 85730; 86231; 86850; 86900; 86901; 86920; 88342; 99285; J2916; P9016